=== PATIENT | female | born 1960 | race American Indian/Alaskan Native ===

== ENCOUNTER 2020-07-30 04:55 | Emergency (ER) | payer SELFPAY ==
--- NOTE | 2020-07-30 05:39 | Emergency Department Report ---
HPI - General Time Seen by Provider: 07/30/20 05:28 - HPI HPI: Room 41 The patient is a 59-year-old female present with a chief complaint of cardiac arrest. Per EMS the patient awakened diaphoretic complaining of dizziness. The patient then collapsed and EMS was called. EMS arrived on scene at 04:21 to find the patient in asystole. Patient was intubated by EMS and ACLS protocols initiated. Patient was administered 4 rounds of epinephrine and 1 round of bicarb by EMS prior to arrival. Just prior to arrival to the ED the patient's rhythm changed from asystole to PEA. In the ED ACLS protocols were continued with return of spontaneous circulation. The patient again arrested briefly and ACLS protocols were continued with return of spontaneous circulation ED Past Medical Hx - Past Medical History Hx Diabetes: Yes - Surgical History Past Surgical History?: No - Family History Family history: no significant - Social History Smoking Status: Unknown if ever smoked ED Review of Systems ROS: Stated complaint: CARDIAC Other details as noted in HPI Comment: Unobtainable due to pts medical conditions Physical Exam - Physical Exam Physical Exam: GENERAL: The patient is well-developed well-nourished female lying on stretcher receiving chest compressions and being bagged via ET tube. [] HEENT: Normocephalic. Atraumatic. Pupils 4 to 3 mm bilaterally. Patient has moist mucous membranes. NECK: Supple. Trachea midline CHEST/LUNGS: No spontaneous respirations. Breath sounds equal bilaterally with bagging HEART/CARDIOVASCULAR: Regular. There is no tachycardia. There is no gallop rub or murmur. ABDOMEN: Abdomen is soft, nontender. Patient has normal bowel sounds. There is no abdominal distention. SKIN: There is no rash. There is no edema. There is no diaphoresis. NEURO: GCS 3 T MUSCULOSKELETAL: There is no evidence of acute injury. ED Course - Reevaluation(s) Reevaluation #1: 07/30/20 05:48 Patient arrested again, ACLS protocols were continued but there was no return of spontaneous circulation. Patient - Consultations Consultation #1: 07/30/20 05:16 EKG sent to cardiology Dr. Kenney- no STEMI ED Medical Decision Making - EKG Data -: EKG Interpreted by Me Rate: normal - EKG Data When compared to previous EKG there are: previous EKG unavailable Interpretation: other (Atrial fibrillation at 68 bpm) - Differential Diagnosis Cardiac arrest Critical care attestation.: If time is entered above; I have spent that time in minutes in the direct care of this critically ill patient, excluding procedure time. ED Disposition Clinical Impression: Cardiac arrest Disposition: DC-20 Is pt being admited?: No Does the pt Need Aspirin: No Condition: Poor Referrals: PRIMARY CARE,MD [Primary Care Provider] - 3-5 Days Time of Disposition: 05:48 (Patient )
== END 2020-07-30 11:45 ==
LOC: ED 04:55
DX: I46.9 Cardiac arrest, cause unspecified (principal); E11.9 Type 2 diabetes mellitus without complications
CPT/HCPCS: 82962; 93005